=== PATIENT | male | born 1950 | race Caucasian/White ===

== ENCOUNTER 2023-06-23 11:49 | Emergency (ER) | payer OTHER, MEDICARE ==
[~2023-06-23] VITALS: Ht 180.3 cm; Wt 63.5 kg
[2023-06-23] MEDS ORDERED: SOLU-MEDROL 125MG VIAL IVP ONE (12:30)
[2023-06-23] MEDS ORDERED: ASPIRIN 325MG TAB PO ONE (12:30)
[2023-06-23] MEDS ORDERED: GUAIFENESIN 600 MG TABLET.ER PO ONE (12:30)
[2023-06-23] MEDS ORDERED: ENOXAPARIN SODIUM 40 MG/0.4 ML SYRINGE SQ ONE (12:30)
[2023-06-23] MEDS ORDERED: IPRATROPIUM/ALBUTEROL SULFATE 3 ML SOLUTION IH ONE (12:30)
[2023-06-23 12:34] LABS: BASOPHILS # (AUTO) 0.09 K/uL (0.00-0.20); BASOPHILS % (AUTO) 0.8 % (0.0-5.0); EOSINOPHILS # (AUTO) 0.23 K/uL (0.00-0.70); HEMATOCRIT 43.8 % (42-54); IMMATURE GRANULOCYTE ABSOLUTE 0.04 K/uL (0-1); LYMPHOCYTES # (AUTO) 2.1 K/uL (1.0-4.8); LYMPHOCYTES % (AUTO) 18.9 % (21.0-51.0); MEAN CORPUSCULAR HEMOGLOBIN 32.7 pg (27.0-33.0); MEAN CORPUSCULAR HGB CONC 33.6 g/dL (32.0-36.0); MEAN CORPUSCULAR VOLUME 97.3 fL (79-99); MONOCYTES # (AUTO) 0.9 K/uL (0.1-1.0); MONOCYTES % (AUTO) 7.9 % (3.0-13.0); NEUTROPHILS # (AUTO) 7.9 K/uL (1.8-7.7); PLATELET COUNT (AUTO) 277 K/uL (130-400); RED CELL DISTRIBUTION WIDTH 13.5 % (11.0-15.5); WHITE BLOOD COUNT (AUTO) 11.3 K/uL (4.8-10.8)
[2023-06-23 12:50] LABS: CREATININE 0.7 mg/dL (0.5-1.5); POTASSIUM 3.8 mmol/L (3.5-5.1)
[2023-06-23 12:54] LABS: ALBUMIN 3.8 g/dL (3.5-5.0); BILIRUBIN,TOTAL 0.4 mg/dL (0.2-1.0); TOTAL PROTEIN, SERUM 7.2 g/dL (6.0-8.3)
[2023-06-23 13:52] VITALS: PULSE 108; RESP 28
[2023-06-23 13:56] LABS: ABG BASE EXCESS -2.6 mmol/L (-2.0-3.0); ABG HCO3 22.1 mmol/L (21.0-28.0); ABG OXYGEN SATURATION 88.4 % (95.0-99.0); ABG PCO2 38 mmHg (35-48); ABG PH 7.381 (7.35-7.450); PO2, ARTERIAL BG 55.2 mmHg (83.0-108.0); VENT MODE, BG RA (ROOM AIR)
[2023-06-23 15:36] VITALS: BP 144/78; PULSE 98; RESP 28; O2SAT 100
[2023-06-23] MEDS ORDERED: ALBUHFA IH (15:43)
[2023-06-23] MEDS ORDERED: GUAI600T50 PO (15:43)
[2023-06-23] MEDS ORDERED: AUD IH (15:43)
== END 2023-06-23 15:54 | disposition left against medical advice (07) ==
LOC: EDH 11:49
DX: J44.1 Chronic obstructive pulmonary disease with (acute) exacerbation (principal); R09.02 Hypoxemia; E78.00 Pure hypercholesterolemia, unspecified; I10 Essential (primary) hypertension; F17.200 Nicotine dependence, unspecified, uncomplicated
CPT/HCPCS: 99285; 96374; 71045; 84484; 80053; 82803; 85025; 36415; 96372; 93005; 36600; 94640; J2930; J1650